=== PATIENT | male | born 1955 | race Caucasian/White ===

== ENCOUNTER 2024-02-18 19:48 | Inpatient (IN) | payer OTHER, MEDICARE ==
[2024-02-18 20:38] LABS: #Basophils 0.12 10x3/uL (0.0-0.2); %Lymphocytes 19.8 % (21.0-51.0); %Monocytes 10.2 % (0.0-10.0); %Neutrophils 66.3 % (42.0-75.0); Mean Corpuscular Hemoglobin 29.4 pg (27.0-31.0); Mean Corpuscular Volume 86.4 fL (78.0-98.0); Mean Platelet Volume 10.3 fL (7.4-10.4); Platelet Count 332 10x3/uL (130-400); RBC Distribution Width 13.9 % (11.5-14.5); Red Blood Cell (RBC) Count 5.79 mill/uL (4.70-6.10)
[2024-02-18 20:59] LABS: ALT (SGPT) 25 U/L (8-55); AST (SGOT) 16 U/L (5-34); Alkaline Phosphatase 123 U/L (40-110); Anion Gap 16 mmol/L (10-20); BUN (Urea Nitrogen) 23 mg/dL (8.4-25.7); Bilirubin, Total 0.2 mg/dL (0.2-1.2); Calc. Creatinine Clearance 0 mL/min (70-130); Calcium 9.5 mg/dL (7.8-10.44); Carbon Dioxide 19 mmol/L (23-31); Chloride 105 mmol/L (98-107); Estimated GFR 76; Globulin 3.6 g/dL (2.4-3.5); Glucose 326 mg/dL (80-115); Potassium 3.9 mmol/L (3.5-5.1); Protein, Total 7.6 g/dL (5.8-8.1); Sodium 136 mmol/L (136-145)
[2024-02-18 21:06] LABS: Troponin I 0.025 ng/mL (< 0.028)
[2024-02-18] MEDS ORDERED: Nitroglycerin 2% Ointment 1 INCH/1 GM Packet ONE (21:46)
[2024-02-18] MEDS ORDERED: Ondansetron ODT 4 MG TAB SL PRN (22:00)
[2024-02-18] MEDS ORDERED: Acetaminophen 325 MG TAB PO PRN (22:00)
[2024-02-18] MEDS ORDERED: Ondansetron PF 4 MG/2 ML Vial IVP PRN (22:00)
[2024-02-18] MEDS ORDERED: Dextrose 5% in Water 1,000 ML IV PRN (23:48)
[2024-02-18] MEDS ORDERED: Insulin Lispro 100 UNIT/ML 10 ML VIAL SC PRN ×2 (23:48)
[2024-02-18] MEDS ORDERED: Dextrose 50% Abboject 50 ML SYRINGE SLOW IVP PRN (23:48)
[2024-02-18] MEDS ORDERED: Glucagon 1 MG/ML KIT IM PRN (23:48)
[2024-02-19 00:05] VITALS: BMI 31.9
[2024-02-19 05:26] LABS: #Basophils 0.08 10x3/uL (0.0-0.2); %Basophils 0.7 % (0.0-1.0); %Lymphocytes 19.2 % (21.0-51.0); %Monocytes 11.4 % (0.0-10.0); Hematocrit 47.1 % (42.0-52.0); Hemoglobin 16.2 g/dL (14.0-18.0); Mean Corpuscular HGB CONC 34.4 g/dL (32.0-36.0); Mean Corpuscular Hemoglobin 29.8 pg (27.0-31.0); Mean Corpuscular Volume 86.7 fL (78.0-98.0); Mean Platelet Volume 10.1 fL (7.4-10.4); Platelet Count 319 10x3/uL (130-400); RBC Distribution Width 13.9 % (11.5-14.5); Red Blood Cell (RBC) Count 5.43 mill/uL (4.70-6.10)
[2024-02-19 05:41] LABS: Anion Gap 13 mmol/L (10-20); BUN (Urea Nitrogen) 22 mg/dL (8.4-25.7); Calc. Creatinine Clearance 137 mL/min (70-130); Calcium 9.7 mg/dL (7.8-10.44); Carbon Dioxide 19 mmol/L (23-31); Chloride 109 mmol/L (98-107); Estimated GFR 97; Glucose 162 mg/dL (80-115); Sodium 137 mmol/L (136-145)
[2024-02-19 05:47] LABS: Cardiac Risk 4.8 (Less than 4.5); Cholesterol 153 mg/dl (< 200 Desired); HDL Cholesterol 32 mg/dL (>60 Neg Risk); Triglycerides 419 mg/dL (Less than 150)
[2024-02-19 05:48] LABS: Troponin I 1.677 ng/mL (< 0.028)
[2024-02-19 05:49] LABS: Hemoglobin A1c 7.5 % (4.0-6.0)
[2024-02-19 06:36] LABS: Hematocrit 47.2 % (42.0-52.0); Hemoglobin 16.3 g/dL (14.0-18.0); Platelet Count 322 10x3/uL (130-400)
[2024-02-19] MEDS: Aspirin 325 mg Enteric Coated Tablet PO SCH (08:01)
[2024-02-19 08:20] LABS: Glucose 253 mg/dL (80-115)
[2024-02-19] MEDS: Metoprolol Tartrate 25 MG TAB PO SCH (08:35)
[2024-02-19] MEDS: Heparin 10,000 UNITS/ 10 ML VIAL SLOW IVP SCH ×2 (08:35→17:40)
[2024-02-19] MEDS: Atorvastatin Calcium 40 MG TAB PO SCH (08:36)
[2024-02-19] MEDS: Heparin 25,000 units/D5W 500 ML IVPB SCH ×2 (08:38→17:31)
[2024-02-19] MEDS ORDERED: Adenosine 6 mg (2 mL) VIAL ONE (08:45)
[2024-02-19] MEDS ORDERED: Midazolam HCl 2 mg/2 ml Vial ONE (08:45)
[2024-02-19] MEDS ORDERED: Verapamil 5 MG/2 ML VIAL ONE (08:45)
[2024-02-19] MEDS ORDERED: Heparin 10,000 UNITS/ 10 ML VIAL ONE (08:45)
[2024-02-19] MEDS ORDERED: fentaNYL 50 mcg/mL 1 mL Vial ONE (08:45)
[2024-02-19] MEDS ORDERED: Nitroglycerin 50 MG/250 ML BOT 250 ML ONE (08:46)
[2024-02-19] MEDS ORDERED: niCARdipine 25 MG/10 ML SDV ONE (08:46)
[2024-02-19] MEDS ORDERED: Enoxaparin 40 MG (0.4 mL) SYRINGE SC SCH (09:00)
[2024-02-19] MEDS ORDERED: Atropine Sulfate 1 mg/10 ml Syringe ONE (09:58)
[2024-02-19 09:59] LABS: Troponin I 1.691 ng/mL (< 0.028)
[2024-02-19] MEDS ORDERED: Iopamidol 370 76% 100 ML VIAL ONE (10:47)
[2024-02-19] MEDS ORDERED: Sodium Chloride 0.9% 200 ML IV PRN (10:59)
[2024-02-19] MEDS ORDERED: Nitroglycerin 0.4 MG TAB (25 Tab Bottle) SL PRN (10:59)
[2024-02-19] MEDS ORDERED: Acetaminophen/Codeine 30-300mg Tablet PO PRN (10:59)
[2024-02-19 11:52] LABS: Hematocrit 45.3 % (42.0-52.0); Hemoglobin 15.4 g/dL (14.0-18.0); Platelet Count 295 10x3/uL (130-400)
[2024-02-19 12:03] LABS: Glucose 182 mg/dL (80-115)
[2024-02-19] MEDS ORDERED: Ipratropium/Albuterol 3 ML NEB NEB PRN (14:38)
[2024-02-19] MEDS: predniSONE 20 MG TAB PO SCH (16:18)
[2024-02-19] MEDS: Acetaminophen/Codeine 30-300mg Tablet PO PRN (16:41)
[2024-02-19] MEDS: Insulin Lispro 100 UNIT/ML 10 ML VIAL SC PRN (21:47)
[2024-02-20 04:45] LABS: #Basophils 0.04 10x3/uL (0.0-0.2); %Basophils 0.3 % (0.0-1.0); %Eosinophils 0.3 % (0.0-10.0); %Lymphocytes 15.3 % (21.0-51.0); %Monocytes 8.2 % (0.0-10.0); %Neutrophils 75.3 % (42.0-75.0); Hematocrit 47.6 % (42.0-52.0); Hemoglobin 16.2 g/dL (14.0-18.0); Mean Corpuscular Hemoglobin 29.4 pg (27.0-31.0); Mean Corpuscular Volume 86.4 fL (78.0-98.0); Mean Platelet Volume 10.3 fL (7.4-10.4); Platelet Count 322 10x3/uL (130-400); RBC Distribution Width 13.8 % (11.5-14.5); Red Blood Cell (RBC) Count 5.51 mill/uL (4.70-6.10)
[2024-02-20 04:58] LABS: Anion Gap 13 mmol/L (10-20); BUN (Urea Nitrogen) 17 mg/dL (8.4-25.7); Calc. Creatinine Clearance 125 mL/min (70-130); Calcium 9.2 mg/dL (7.8-10.44); Carbon Dioxide 20 mmol/L (23-31); Chloride 106 mmol/L (98-107); Estimated GFR 94; Glucose 193 mg/dL (80-115); Potassium 4.2 mmol/L (3.5-5.1); Sodium 135 mmol/L (136-145)
[2024-02-20] MEDS: predniSONE 20 MG TAB PO SCH (08:21)
[2024-02-20] MEDS: guaiFENesin/DM ER PO SCH (08:23)
[2024-02-20] MEDS: Aspirin 81 mg Enteric Coated Tablet PO SCH (08:23)
[2024-02-20] MEDS: Lisinopril 10 MG TAB PO SCH (08:24)
[2024-02-20] MEDS: Azithromycin 250 MG TAB PO SCH (11:49)
[2024-02-20] MEDS: Insulin Lispro 100 UNIT/ML 10 ML VIAL SC PRN (12:02)
[2024-02-20] MEDS: cefTRIAXone\\ROCEPHIN 2 GM in Sodium Chloride 0.9% 100 ML IVPB SCH (12:27)
[2024-02-20] MEDS: Ipratropium/Albuterol 3 ML NEB NEB SCH (14:18)
[2024-02-20] MEDS: Atorvastatin Calcium 40 MG TAB PO SCH (20:08)
[2024-02-21 05:41] LABS: #Basophils 0.07 10x3/uL (0.0-0.2); %Basophils 0.6 % (0.0-1.0); %Eosinophils 1.7 % (0.0-10.0); %Lymphocytes 20.3 % (21.0-51.0); %Monocytes 10.9 % (0.0-10.0); %Neutrophils 65.6 % (42.0-75.0); Hematocrit 46.4 % (42.0-52.0); Hemoglobin 15.7 g/dL (14.0-18.0); Mean Corpuscular HGB CONC 33.8 g/dL (32.0-36.0); Mean Corpuscular Hemoglobin 29.4 pg (27.0-31.0); Mean Corpuscular Volume 86.9 fL (78.0-98.0); Platelet Count 300 10x3/uL (130-400); RBC Distribution Width 14.1 % (11.5-14.5); Red Blood Cell (RBC) Count 5.34 mill/uL (4.70-6.10)
[2024-02-21 05:56] LABS: Anion Gap 13 mmol/L (10-20); BUN (Urea Nitrogen) 22 mg/dL (8.4-25.7); Calc. Creatinine Clearance 124 mL/min (70-130); Carbon Dioxide 20 mmol/L (23-31); Chloride 107 mmol/L (98-107); Estimated GFR 94; Glucose 248 mg/dL (80-115); Potassium 3.8 mmol/L (3.5-5.1); Sodium 136 mmol/L (136-145)
[2024-02-21] MEDS: Insulin NPH Human Isophane 100 UNITS/ML (10 ML VIAL) SC SCH (08:56)
[2024-02-21] MEDS: Insulin Glargine 30 UNITS/0.3 ML VIAL SC SCH (09:19)
[2024-02-21 11:26] LABS: Hemoglobin 17.2 g/dL (14.0-18.0); Platelet Count 318 10x3/uL (130-400)
[2024-02-22 05:39] LABS: #Basophils 0.07 10x3/uL (0.0-0.2); %Basophils 0.5 % (0.0-1.0); %Eosinophils 1.9 % (0.0-10.0); %Lymphocytes 21.5 % (21.0-51.0); %Monocytes 10.2 % (0.0-10.0); %Neutrophils 65.1 % (42.0-75.0); Hematocrit 49.3 % (42.0-52.0); Hemoglobin 16.7 g/dL (14.0-18.0); Mean Corpuscular HGB CONC 33.9 g/dL (32.0-36.0); Mean Corpuscular Hemoglobin 29.3 pg (27.0-31.0); Mean Corpuscular Volume 86.5 fL (78.0-98.0); Mean Platelet Volume 10.5 fL (7.4-10.4); Platelet Count 317 10x3/uL (130-400); RBC Distribution Width 14.1 % (11.5-14.5)
[2024-02-22 06:02] LABS: Anion Gap 14 mmol/L (10-20); BUN (Urea Nitrogen) 20 mg/dL (8.4-25.7); Calc. Creatinine Clearance 120 mL/min (70-130); Calcium 9.2 mg/dL (7.8-10.44); Carbon Dioxide 20 mmol/L (23-31); Chloride 105 mmol/L (98-107); Estimated GFR 90; Glucose 216 mg/dL (80-115); Potassium 3.8 mmol/L (3.5-5.1); Sodium 135 mmol/L (136-145)
[2024-02-22] MEDS: Insulin Glargine 30 UNITS/0.3 ML VIAL SC SCH (08:39)
[2024-02-22] MEDS ORDERED: diphenhydrAMINE 25 MG CAP PO PRN (16:26)
[2024-02-23 06:06] LABS: #Basophils 0.11 10x3/uL (0.0-0.2); %Basophils 0.8 % (0.0-1.0); %Eosinophils 2.1 % (0.0-10.0); %Lymphocytes 17.6 % (21.0-51.0); %Neutrophils 68.7 % (42.0-75.0); Hematocrit 48.1 % (42.0-52.0); Hematocrit 48.9 % (42.0-52.0); Hemoglobin 16.5 g/dL (14.0-18.0); Mean Corpuscular HGB CONC 34.8 g/dL (32.0-36.0); Mean Corpuscular Hemoglobin 29.9 pg (27.0-31.0); Mean Corpuscular Volume 85.9 fL (78.0-98.0); Mean Platelet Volume 10.4 fL (7.4-10.4); Platelet Count 312 10x3/uL (130-400); Platelet Count 314 10x3/uL (130-400); RBC Distribution Width 14.1 % (11.5-14.5); Red Blood Cell (RBC) Count 5.69 mill/uL (4.70-6.10)
[2024-02-23] MEDS ORDERED: Communication Order-Pharmacy FS SCH (06:15)
[2024-02-23 07:23] LABS: Anion Gap 14 mmol/L (10-20); BUN (Urea Nitrogen) 18 mg/dL (8.4-25.7); Calc. Creatinine Clearance 124 mL/min (70-130); Calcium 9.5 mg/dL (7.8-10.44); Carbon Dioxide 17 mmol/L (23-31); Chloride 107 mmol/L (98-107); Estimated GFR 94; Glucose 238 mg/dL (80-115); Potassium 4.1 mmol/L (3.5-5.1); Sodium 134 mmol/L (136-145)
[2024-02-23 11:22] LABS: Hematocrit 48.6 % (42.0-52.0); Hemoglobin 16.8 g/dL (14.0-18.0); Platelet Count 302 10x3/uL (130-400)
[2024-02-23] MEDS: diphenhydrAMINE 50 MG CAP PO PRN (20:50)
[2024-02-24] MEDS ORDERED: CEFAZOLIN 2 GM in Sodium Chloride 0.9% 100 ML IVPB SCH (00:01)
[2024-02-24 05:42] LABS: #Basophils 0.11 10x3/uL (0.0-0.2); %Basophils 0.8 % (0.0-1.0); %Eosinophils 2.2 % (0.0-10.0); %Lymphocytes 20.4 % (21.0-51.0); %Neutrophils 65.3 % (42.0-75.0); Hematocrit 49.1 % (42.0-52.0); Hemoglobin 16.8 g/dL (14.0-18.0); Mean Corpuscular HGB CONC 34.2 g/dL (32.0-36.0); Mean Corpuscular Hemoglobin 29.4 pg (27.0-31.0); Mean Platelet Volume 10.5 fL (7.4-10.4); Platelet Count 304 10x3/uL (130-400); RBC Distribution Width 13.9 % (11.5-14.5); Red Blood Cell (RBC) Count 5.71 mill/uL (4.70-6.10)
[2024-02-24 05:53] LABS: Anion Gap 12 mmol/L (10-20); BUN (Urea Nitrogen) 18 mg/dL (8.4-25.7); Calc. Creatinine Clearance 132 mL/min (70-130); Calcium 9.2 mg/dL (7.8-10.44); Carbon Dioxide 20 mmol/L (23-31); Chloride 104 mmol/L (98-107); Estimated GFR 96; Glucose 218 mg/dL (80-115); Potassium 3.8 mmol/L (3.5-5.1); Sodium 132 mmol/L (136-145)
[2024-02-24] MEDS ORDERED: Bupivacaine PF 0.5% 30 ML VIAL ONE (06:28)
[2024-02-24] MEDS ORDERED: EPINEPHrine 1 MG/ML VIAL ONE (06:28)
[2024-02-24] MEDS ORDERED: Albumin 5% 500 ML ONE (06:28)
[2024-02-24] MEDS ORDERED: Dexamethasone 4 mg/ml Vial ONE (06:28)
[2024-02-24] MEDS ORDERED: PHENYLEPHRINE-NS 100 MCG/ML 10 ML SYRINGE ONE ×3 (06:29→12:04)
[2024-02-24] MEDS ORDERED: Lidocaine 1% MPF 2 ML VIAL ONE (06:29)
[2024-02-24] MEDS ORDERED: Heparin 10,000 UNITS/1 ML VIAL 30,000 UNITS in Sodium Chloride 0.9% 1,000 ML FS SCH (07:00)
[2024-02-24] MEDS ORDERED: CEFAZOLIN 2 GM VIAL ONE (07:07)
[2024-02-24] MEDS ORDERED: Fentanyl 250 MCG/5 ML VIAL ONE ×2 (07:27→08:13)
[2024-02-24] MEDS ORDERED: Rocuronium Bromide 10 MG/ML (10ML VIAL) ONE ×2 (07:27→08:56)
[2024-02-24] MEDS ORDERED: Etomidate 40 MG (20 mL) VIAL ONE (07:27)
[2024-02-24] MEDS ORDERED: Midazolam HCl 2 mg/2 ml Vial ONE ×2 (07:30→11:58)
[2024-02-24] MEDS ORDERED: ePHEDrine Sulfate 50 MG/10 ML VIAL ONE (07:56)
[2024-02-24] MEDS ORDERED: PROPOFOL 20 ML ONE (08:06)
[2024-02-24] MEDS ORDERED: Papaverine 60 MG/2 ML VIAL ONE ×2 (08:08→08:18)
[2024-02-24] MEDS ORDERED: Nitroglycerin 50 MG/250 ML BOT ONE (08:18)
[2024-02-24] MEDS ORDERED: Heparin 5,000 UNITS/ML VIAL ONE (08:18)
[2024-02-24] MEDS ORDERED: Aminocaproic Acid 5 GM/20 ML VIAL ONE (08:18)
[2024-02-24] MEDS ORDERED: PROPOFOL 200 MG/20 ML VIAL ONE (08:18)
[2024-02-24] MEDS ORDERED: Heparin 30,000 units/30 ml VIAL ONE (08:18)
[2024-02-24] MEDS ORDERED: Sodium Bicarb 50 mEq/50 ML VIAL ONE (08:18)
[2024-02-24] MEDS ORDERED: Cardioplegic Soln 1,000 ML BAG ONE (08:18)
[2024-02-24] MEDS ORDERED: Mannitol 12.5 GM/50 ML ONE (08:18)
[2024-02-24] MEDS ORDERED: Protamine Sulfate 250 MG/25 ML VIAL ONE (08:18)
[2024-02-24] MEDS ORDERED: Lidocaine 2% PF 100 mg/5 ml Syringe ONE (08:18)
[2024-02-24] MEDS ORDERED: Potassium Chloride 60 mEq (30 mL) VIAL ONE (08:18)
[2024-02-24] MEDS ORDERED: Magnesium 5 GM/10 ML VIAL ONE (08:18)
[2024-02-24] MEDS ORDERED: Vancomycin 1 GM VIAL ONE (08:18)
[2024-02-24] MEDS ORDERED: Thrombin 5000 UNITS/5 ML VIAL ONE (08:18)
[2024-02-24] MEDS ORDERED: Calcium Chloride 1 GM/10 ML Abboject SYRINGE ONE (08:18)
[2024-02-24] MEDS ORDERED: Esmolol 100 MG/10 ML VIAL ONE (08:21)
[2024-02-24] MEDS ORDERED: Heparin 10,000 UNITS/ 10 ML VIAL ONE ×2 (09:08→09:24)
[2024-02-24] MEDS ORDERED: Insulin Regular, Human 100 UNIT/ML 10 ML VIAL ONE (09:48)
[2024-02-24] MEDS ORDERED: Bisacodyl 10 MG SUPP PR PRN (12:30)
[2024-02-24] MEDS ORDERED: Guaifenesin DM 100-10/5 ML UDCUP PO PRN (12:30)
[2024-02-24] MEDS ORDERED: Phenylephrine 40 MG/NS 250 ML 250 ML IVPB PRN (12:30)
[2024-02-24] MEDS ORDERED: Mag-Al 1200 mg/1200 mg/30 ML UDCUP PO PRN (12:30)
[2024-02-24] MEDS ORDERED: fentaNYL 50 mcg/mL 1 mL Vial SLOW IVP PRN (12:30)
[2024-02-24] MEDS ORDERED: Nitroglycerin 50 MG/250 ML BOT 250 ML IVPB PRN (12:30)
[2024-02-24] MEDS ORDERED: Promethazine HCl 25 MG/ML VIAL IM PRN (12:30)
[2024-02-24] MEDS ORDERED: Bisacodyl 5 MG TAB PO PRN (12:30)
[2024-02-24] MEDS ORDERED: Electrolyte Replacement Protocol 1 EACH FS SCH (12:45)
[2024-02-24] MEDS: Sodium Chloride 0.9% 1,000 ML IV SCH (13:20)
[2024-02-24] MEDS: Morphine 2 MG/ML VIAL SLOW IVP PRN (13:21)
[2024-02-24 13:22] LABS: Base Excess (BEa) -5.8 mEq/L (-2.0 to +3.0); CO2 Tension 51.8 mmHg (35.0-45.0); Calcium, Ionized (arterial) 1.19 mmol/L (1.12-1.30); Carboxyhemoglobin (COHb) 0.9 gm% (0.0-3.0); Hematocrit-ABG 46 % (42.0-52.0); Hemoglobin (Hb) 15.6 g/dL (14.0-18.0); O2 Tension (PaO2), arterial 129.4 mmHg (> 80.0); Potassium - ABG Lab 4.01 mmol/L (3.70-5.30); Puncture Site Arterial Line; pH, Arterial 7.246 (7.35-7.45)
[2024-02-24] MEDS: hydrALAZINE 20 MG/ML VIAL SLOW IVP PRN (13:22)
[2024-02-24] MEDS: Magnesium 2 GM/50 ML(in water) 2 GM in Premix 1 BAG IVPB SCH (13:24)
[2024-02-24] MEDS: INSULIN REGULAR IN 0.9 % NACL 100 UNITS in Premix 1 BAG IVPB SCH (13:24)
[2024-02-24 13:31] LABS: Hematocrit 44.1 % (42.0-52.0); Hemoglobin 14.9 g/dL (14.0-18.0); Mean Corpuscular HGB CONC 33.8 g/dL (32.0-36.0); Mean Corpuscular Hemoglobin 30.1 pg (27.0-31.0); Mean Corpuscular Volume 89.1 fL (78.0-98.0); Mean Platelet Volume 10.3 fL (7.4-10.4); Platelet Count 250 10x3/uL (130-400); RBC Distribution Width 14.1 % (11.5-14.5); Red Blood Cell (RBC) Count 4.95 mill/uL (4.70-6.10)
[2024-02-24] MEDS: Ipratropium/Albuterol 3 ML NEB NEB SCH (13:34)
[2024-02-24] MEDS: niCARdipine 25 MG in Sodium Chloride 0.9% 250 ML 250 ML IVPB PRN (13:37)
[2024-02-24 13:40] LABS: Anion Gap 11 mmol/L (10-20); BUN (Urea Nitrogen) 19 mg/dL (8.4-25.7); Calc. Creatinine Clearance 110 mL/min (70-130); Calcium 8.2 mg/dL (7.8-10.44); Carbon Dioxide 25 mmol/L (23-31); Chloride 109 mmol/L (98-107); Estimated GFR 82; Glucose 181 mg/dL (80-115); Potassium 4.1 mmol/L (3.5-5.1); Sodium 141 mmol/L (136-145)
[2024-02-24 13:45] LABS: INR-International Normal Ratio 1.1
[2024-02-24 13:47] LABS: PTT 28.6 sec (22.9-36.1)
[2024-02-24] MEDS: Post-Op Insulin Drip Protocol IVPB ONE (13:47)
[2024-02-24 13:51] LABS: Band 10 % (5-11); Burr Cells SLIGHT = 2-5 cells HPF (0-1); Eosinophils 2 % (0-10); Lymphocytes 4 % (21-51); Monocytes 9 % (0-10); Neutrophil 74 % (42-75); Platelet Adequacy Comment Platelets Normal; Polychromasia SLIGHT = 2-3 cells HPF (0-2); Reactive Lymphocytes 1 % (0-10)
[2024-02-24] MEDS: NOREPINEPHRINE 8 MG/250 ML-D5W 250 ML IVPB PRN (14:16)
[2024-02-24] MEDS: CEFAZOLIN 2 GM in Sodium Chloride 0.9% 100 ML IVPB SCH (14:25)
[2024-02-24] MEDS: Albumin 5% 12.5 GM (250 mL) BOT IVPB PRN ×2 (14:29→20:08)
[2024-02-24] MEDS: Dexmedetomidine In 0.9 % NaCl 100 ML IVPB SCH (14:37)
[2024-02-24 15:31] LABS: Actual Bicarbonate (HCO3a) 19.9 mEq/L (22-28); Base Excess (BEa) -3.1 mEq/L (-2.0 to +3.0); CO2 Tension 30.3 mmHg (35.0-45.0); Carboxyhemoglobin (COHb) 1.3 gm% (0.0-3.0); Hematocrit-ABG 44 % (42.0-52.0); Hemoglobin (Hb) 15.1 g/dL (14.0-18.0); O2 Tension (PaO2), arterial 85.8 mmHg (> 80.0); Potassium - ABG Lab 3.23 mmol/L (3.70-5.30); pH, Arterial 7.435 (7.35-7.45)
[2024-02-24 15:39] LABS: ALV-art Gradient 161.525 mmHg (0-20); Puncture Site Arterial Line
[2024-02-24] MEDS: fentaNYL 50 mcg/mL 1 mL Vial SLOW IVP PRN (15:40)
[2024-02-24 18:14] LABS: Hemoglobin 15.3 g/dL (14.0-18.0)
[2024-02-24 19:13] LABS: Potassium 3.7 mmol/L (3.5-5.1)
[2024-02-24] MEDS: Famotidine/PF 20 mg/2ml Vial SLOW IVP SCH (20:07)
[2024-02-24] MEDS: Atorvastatin Calcium 20 MG TAB PO SCH (20:07)
[2024-02-24] MEDS: Potassium Chloride 20 MEQ (100 mL) BAG IVPB PRN (20:08)
[2024-02-25 00:47] LABS: Potassium 3.7 mmol/L (3.5-5.1)
[2024-02-25] MEDS: traMADol HCl 50 MG TAB PO PRN ×2 (03:32→10:44)
[2024-02-25] MEDS: Ondansetron PF 4 MG/2 ML Vial IVP PRN (04:45)
[2024-02-25 05:56] LABS: Anion Gap 10 mmol/L (10-20); BUN (Urea Nitrogen) 12 mg/dL (8.4-25.7); Calc. Creatinine Clearance 155 mL/min (70-130); Calcium 8.2 mg/dL (7.8-10.44); Carbon Dioxide 22 mmol/L (23-31); Chloride 108 mmol/L (98-107); Estimated GFR 100; Glucose 133 mg/dL (80-115); Potassium 3.8 mmol/L (3.5-5.1); Sodium 136 mmol/L (136-145)
[2024-02-25 05:57] LABS: #Basophils 0.04 10x3/uL (0.0-0.2); %Basophils 0.2 % (0.0-1.0); %Eosinophils 0.2 % (0.0-10.0); %Lymphocytes 7.3 % (21.0-51.0); %Monocytes 12.2 % (0.0-10.0); %Neutrophils 79.1 % (42.0-75.0); Hematocrit 36.2 % (42.0-52.0); Hemoglobin 12.3 g/dL (14.0-18.0); Mean Corpuscular Hemoglobin 29.5 pg (27.0-31.0); Mean Corpuscular Volume 86.8 fL (78.0-98.0); Mean Platelet Volume 10.5 fL (7.4-10.4); Platelet Count 235 10x3/uL (130-400); RBC Distribution Width 14.2 % (11.5-14.5); Red Blood Cell (RBC) Count 4.17 mill/uL (4.70-6.10)
[2024-02-25] MEDS: Acetaminophen 325 MG TAB PO PRN (06:17)
[2024-02-25] MEDS: Insulin Glargine 30 UNITS/0.3 ML VIAL SC SCH (08:40)
[2024-02-25] MEDS: Heparin 5,000 UNITS/ML VIAL SC SCH (08:40)
[2024-02-25] MEDS: Lidocaine 4% Patch TD SCH (08:41)
[2024-02-25] MEDS: Magnesium 2 GM/50 ML(in water) 2 GM in Premix 1 BAG IVPB SCH (08:42)
[2024-02-25] MEDS: Senokot S 8.6-50 MG TAB PO SCH (08:42)
[2024-02-25] MEDS: Aspirin Chewable 81 MG TAB PO SCH (08:42)
[2024-02-25 11:30] LABS: Hematocrit 31.1 % (42.0-52.0); Hemoglobin 10.5 g/dL (14.0-18.0); Platelet Count 176 10x3/uL (130-400)
[2024-02-25 15:03] VITALS: BMI 31.8
[2024-02-25] MEDS: Insulin Regular, Human 100 UNIT/ML 10 ML VIAL SC PRN (16:59)
[2024-02-25] MEDS: Atorvastatin Calcium 40 MG TAB PO SCH (19:56)
[2024-02-25] MEDS: Famotidine 20 MG TAB PO SCH (19:56)
[2024-02-25] MEDS: hydrOXYzine 25 MG TAB PO PRN (21:39)
[2024-02-25] MEDS: Transdermal Patch Removal TOP SCH (22:30)
[2024-02-26 04:18] LABS: #Basophils 0.03 10x3/uL (0.0-0.2); %Basophils 0.2 % (0.0-1.0); %Eosinophils 0.4 % (0.0-10.0); %Lymphocytes 7.7 % (21.0-51.0); %Monocytes 12.3 % (0.0-10.0); %Neutrophils 78.8 % (42.0-75.0); Hematocrit 34.3 % (42.0-52.0); Hemoglobin 11.5 g/dL (14.0-18.0); Mean Corpuscular HGB CONC 33.5 g/dL (32.0-36.0); Mean Corpuscular Hemoglobin 29.9 pg (27.0-31.0); Mean Corpuscular Volume 89.3 fL (78.0-98.0); Mean Platelet Volume 10.7 fL (7.4-10.4); Platelet Count 186 10x3/uL (130-400); RBC Distribution Width 14.3 % (11.5-14.5); Red Blood Cell (RBC) Count 3.84 mill/uL (4.70-6.10)
[2024-02-26 04:39] LABS: Phosphorus 2.5 mg/dL (2.3-4.7)
[2024-02-26 04:41] LABS: Anion Gap 12 mmol/L (10-20); BUN (Urea Nitrogen) 12 mg/dL (8.4-25.7); Calc. Creatinine Clearance 159 mL/min (70-130); Calcium 8.8 mg/dL (7.8-10.44); Carbon Dioxide 22 mmol/L (23-31); Chloride 103 mmol/L (98-107); Estimated GFR 101; Glucose 186 mg/dL (80-115); Magnesium 1.9 mg/dL (1.6-2.6); Potassium 3.9 mmol/L (3.5-5.1); Sodium 133 mmol/L (136-145)
[2024-02-26] MEDS ORDERED: Magnesium 2 GM/50 ML(in water) 2 GM in Premix 1 BAG IVPB SCH (08:00)
[2024-02-26] MEDS ORDERED: Mineral Oil ENEMA PR PRN (19:53)
[2024-02-26] MEDS ORDERED: Artificial Tear Ophth Sol 15 ML BOT EA EYE PRN (19:53)
[2024-02-26] MEDS ORDERED: Bisacodyl 10 MG SUPP PR PRN (19:53)
[2024-02-26] MEDS ORDERED: Bisacodyl 5 MG TAB PO PRN (19:53)
[2024-02-26] MEDS ORDERED: Guaifenesin DM 100-10/5 ML UDCUP PO PRN (19:53)
[2024-02-26] MEDS ORDERED: Mag-Al 1200 mg/1200 mg/30 ML UDCUP PO PRN (19:53)
[2024-02-26] MEDS ORDERED: Milk Of Magnesia 30 ML UDCUP PO PRN (19:53)
[2024-02-26] MEDS ORDERED: Nitroglycerin 0.4 MG TAB (25 Tab Bottle) SL PRN (19:53)
[2024-02-26] MEDS ORDERED: Dextrose 5% in Water 1,000 ML IV PRN (20:00)
[2024-02-26] MEDS ORDERED: Glucagon 1 MG/ML KIT SC PRN (20:00)
[2024-02-26] MEDS ORDERED: Dextrose 50% Abboject 50 ML SYRINGE SLOW IVP PRN (20:00)
[2024-02-26] MEDS: diphenhydrAMINE 25 MG CAP PO SCH (20:20)
[2024-02-26] MEDS: Metoprolol Tartrate 25 MG TAB PO SCH (20:21)
[2024-02-26] MEDS: Insulin Regular, Human 100 UNIT/ML 10 ML VIAL SC PRN (20:23)
[2024-02-27] MEDS: Lisinopril 10 MG TAB PO SCH (08:16)
[2024-02-27] MEDS: diphenhydrAMINE 25 MG CAP PO PRN (19:05)
[2024-02-28 04:34] LABS: #Basophils 0.08 10x3/uL (0.0-0.2); %Basophils 0.6 % (0.0-1.0); %Eosinophils 2.7 % (0.0-10.0); %Lymphocytes 12.5 % (21.0-51.0); %Neutrophils 70.3 % (42.0-75.0); Hematocrit 35.9 % (42.0-52.0); Hemoglobin 12.4 g/dL (14.0-18.0); Mean Corpuscular HGB CONC 34.5 g/dL (32.0-36.0); Mean Corpuscular Hemoglobin 30.1 pg (27.0-31.0); Mean Corpuscular Volume 87.1 fL (78.0-98.0); Mean Platelet Volume 10.9 fL (7.4-10.4); Platelet Count 255 10x3/uL (130-400); RBC Distribution Width 14.1 % (11.5-14.5); Red Blood Cell (RBC) Count 4.12 mill/uL (4.70-6.10)
[2024-02-28 04:50] LABS: Anion Gap 13 mmol/L (10-20); BUN (Urea Nitrogen) 14 mg/dL (8.4-25.7); Calc. Creatinine Clearance 131 mL/min (70-130); Calcium 9.1 mg/dL (7.8-10.44); Carbon Dioxide 23 mmol/L (23-31); Chloride 103 mmol/L (98-107); Estimated GFR 95; Glucose 164 mg/dL (80-115); Potassium 4.2 mmol/L (3.5-5.1); Sodium 135 mmol/L (136-145)
[2024-02-28 07:44] VITALS: TEMP 97.9
[2024-02-28] MEDS: Metoprolol Tartrate 50 MG TAB PO SCH (08:46)
[2024-02-28 08:54] VITALS: BP 103/61
== END 2024-02-28 11:15 | disposition home or self-care (01) | DRG 234 ==
LOC: ERS 19:48 → OBS 21:50 → OBSVTOIN 02-19 13:57 → CCU 02-24 13:07 → PCU 02-26 11:12
PROVIDERS: ADMIT Hospitalist; ATTEND Internal Medicine
PROC: 4A023N7 Measurement of Cardiac Sampling and Pressure, Left Heart, Percutaneous Approach (ICD-10-PCS; 2024-02-19)
PROC: B2111ZZ Fluoroscopy of Multiple Coronary Arteries using Low Osmolar Contrast (ICD-10-PCS; 2024-02-19)
PROC: 02100Z9 Bypass Coronary Artery, One Artery from Left Internal Mammary, Open Approach (ICD-10-PCS; principal; 2024-02-24)
PROC: 021209W Bypass Coronary Artery, Three Arteries from Aorta with Autologous Venous Tissue, Open Approach (ICD-10-PCS; 2024-02-24)
PROC: 06BQ4ZZ Excision of Left Saphenous Vein, Percutaneous Endoscopic Approach (ICD-10-PCS; 2024-02-24)
PROC: 5A1221Z Performance of Cardiac Output, Continuous (ICD-10-PCS; 2024-02-24)
PROC: 02L70CK Occlusion of Left Atrial Appendage with Extraluminal Device, Open Approach (ICD-10-PCS; 2024-02-24)
DX: I21.4 Non-ST elevation (NSTEMI) myocardial infarction (principal); J44.1 Chronic obstructive pulmonary disease with (acute) exacerbation; E78.5 Hyperlipidemia, unspecified; I10 Essential (primary) hypertension; E11.65 Type 2 diabetes mellitus with hyperglycemia; E66.9 Obesity, unspecified; G47.33 Obstructive sleep apnea (adult) (pediatric); I25.10 Atherosclerotic heart disease of native coronary artery without angina pectoris; I25.110 Atherosclerotic heart disease of native coronary artery with unstable angina pectoris; Z79.82 Long term (current) use of aspirin; Z79.899 Other long term (current) drug therapy
CPT/HCPCS: 36415; 36416; 36430; 71045; 80048; 80053; 80061; 82805; 82947; 83036; 83735; 84100; 84484; 85025; 85610; 85730; 86850; 86900; 86901; 93005; 93010; 93306; 93458; 93798; 94002; 94640; 94760; 96374; 96375; 96376; 97139; 99152; 99153; A4311; A4648; C1751; C1894; G0378; J0153; J0171; J0360; J0461; J0665; J0696; J1100; J1642; J1643; J1644; J1815; J2003; J2150; J2250; J2272; J2405; J2440; J2704; J2720; J3010; J3370; J3475; J3480; J3490; J7030; J7050; J7512; J7620; P9045; Q9967; S0017